=== PATIENT | female | born 1985 | race Caucasian/White ===

== ENCOUNTER 2017-02-23 17:26 | Emergency (ER) | payer OTHER ==
[~2017-02-23] VITALS: Ht 170.2 cm; Wt 89.3 kg
[~2017-02-23 17:26] MED LIST: DOCU-131 PO; FERR325T18 PO; GUAI-103 PO; IBUP-1222 PO
[2017-02-23 17:45] VITALS: BP 142/79
== END 2017-02-23 18:54 | disposition home or self-care (01) ==
LOC: ED 18:45
DX: S83.91XA Sprain of unspecified site of right knee, initial encounter (principal); X58.XXXA Exposure to other specified factors, initial encounter; Y93.89 Activity, other specified; Y99.8 Other external cause status; Y92.89 Other specified places as the place of occurrence of the external cause
CPT/HCPCS: 99284